=== PATIENT | female | born 1990 | race Caucasian/White ===

== ENCOUNTER 2019-08-08 23:40 | Inpatient (IN) | payer MEDICAID ==
[~2019-08-08] VITALS: Ht 160 cm; Wt 127.5 kg
[~2019-08-08 23:40] MED LIST: PREN-385 PO
[2019-08-09] MEDS ORDERED: LACTATED RINGERS 500 ML IV SCH (00:20)
[2019-08-09] MEDS ORDERED: PROMETHAZINE 25 MG/ML VIAL IVP PRN (00:25)
[2019-08-09] MEDS ORDERED: MORPHINE SULFATE 4 MG/ML SYR IVP PRN (00:25)
[2019-08-09] MEDS ORDERED: PREN-380 PO (00:27)
[2019-08-09 00:28] VITALS: BP 102/74
[2019-08-09 00:45] LABS: BASOPHILS # (AUTO) 0.1 K/uL (0.00-0.22); BASOPHILS % (AUTO) 0.5 % (0.0-2.0); EOSINOPHILS # (AUTO) 0.1 K/uL (0-0.4); EOSINOPHILS % (AUTO) 0.8 % (0.0-4.0); HEMATOCRIT 30.7 % (36-48); LYMPHOCYTES # (AUTO) 2.1 K/uL (2.5-16.5); LYMPHOCYTES % (AUTO) 19.3 % (20.5-51.1); MEAN CORPUSCULAR HEMOGLOBIN 27 pg (27-31); MEAN CORPUSCULAR HGB CONC 32 g/dL (33-37); MEAN CORPUSCULAR VOLUME 83.4 fL (80-94); MONOCYTES # (AUTO) 0.7 K/uL (0.8-1.0); MONOCYTES % (AUTO) 6.6 % (1.7-9.3); NEUTROPHILS % (AUTO) 72.8 % (42.2-75.2); PLATELET COUNT (AUTO) 233 K/uL (140-450); RED BLOOD CELL COUNT(AUTO) 3.68 MIL/uL (4.20-5.40); RED CELL DISTRIBUTION WIDTH 13.7 % (11.6-13.7)
[2019-08-09] MEDS ORDERED: AMPICILLIN 2,000 MG in NACL 0.9% MINI-BAG PLUS 100 ML IV SCH (01:00)
[2019-08-09 01:09] LABS: APPEARANCE,URINE SL CLOUDY (CLEAR); BILIRUBIN,URINE NEGATIVE (NEGATIVE); BLOOD, URINE NEGATIVE (NEGATIVE); COLOR,URINE YELLOW (YELLOW); LEUKOCYTE ESTERASE ,URINE NEGATIVE (NEGATIVE); NITRITE, URINE NEGATIVE (NEGATIVE); UGLUCOSE TRACE (NEGATIVE)
[2019-08-09] MEDS: LACTATED RINGERS 1,000 ML IV SCH ×2 (01:23→14:21)
[2019-08-09] MEDS ORDERED: AMPICILLIN 2,000 MG VIAL ONE (01:25)
[2019-08-09] MEDS ORDERED: AMPICILLIN 1,000 MG VIAL ONE ×3 (04:56→14:04)
[2019-08-09] MEDS ORDERED: OXYTOCIN 20 UNITS/LR PREMIX 1,000 ML IV ONE ×3 (04:58→09:13)
[2019-08-09] MEDS ORDERED: OXYTOCIN 20 UNITS in LACTATED RINGERS 1,000 ML IV SCH (05:00)
[2019-08-09] MEDS: AMPICILLIN 1,000 MG in NACL 0.9% MINI-BAG PLUS 50 ML IV SCH ×2 (05:04→14:10)
--- NOTE | 2019-08-09 08:38 | NUR ---
PATIENT HAS BEEN SCREENED AND CATEGORIZED LOW NUTRITION RISK. PATIENT WILL BE SEEN WITHIN 7 DAYS OF ADMISSION. 08/15/[address]
[2019-08-09] MEDS ORDERED: ROPIVACAINE 0.2%/NS PREMIX 200 ML EPI ONE (09:17)
[2019-08-09] MEDS ORDERED: ROPIVACAINE 0.2%/NS PREMIX 200 ML EPI SCH (10:00)
[2019-08-09] MEDS ORDERED: HYDROcodone/APAP 5/325 MG 1 TAB TAB PO PRN (16:50)
[2019-08-09] MEDS ORDERED: TEMAZEPAM 15 MG CAP PO PRN (16:50)
[2019-08-09] MEDS ORDERED: OXYTOCIN 10 UNITS/ML VIAL IM PRN (16:50)
[2019-08-09] MEDS ORDERED: METHYLERGONOVINE 0.2 MG/ML AMP IM PRN (16:50)
[2019-08-09] MEDS ORDERED: BENZOCAINE/MENTHOL 20%-0.5% 60 GM CAN TP PRN (16:50)
[2019-08-09] MEDS ORDERED: oxyCODONE/APAP 5/325 MG 1 TAB TAB PO PRN (16:50)
[2019-08-09] MEDS ORDERED: IBUPROFEN 800 MG TAB PO PRN (16:50)
[2019-08-09] MEDS ORDERED: DOCUSATE SOD/SENNA 50/8.6 MG 1 TAB PO SCH (21:00)
[2019-08-09] MEDS ORDERED: BISACODYL 5 MG TABEC PO SCH (21:00)
[2019-08-10 16:32] LABS: HEMATOCRIT 30.6 % (36-48)
== END 2019-08-10 21:15 | disposition home or self-care (01) | DRG 560 ==
LOC: MLD 23:40 → MFCC 08-09 10:31
PROVIDERS: ADMIT Obstetrics & Gynecology; ATTEND Obstetrics & Gynecology
PROC: 10E0XZZ Delivery of Products of Conception, External Approach (ICD-10-PCS; principal; 2019-08-09)
PROC: 3E0234Z Introduction of Serum, Toxoid and Vaccine into Muscle, Percutaneous Approach (ICD-10-PCS; 2019-08-10)
DX: O69.1XX0 Labor and delivery complicated by cord around neck, with compression, not applicable or unspecified (principal); R71.0 Precipitous drop in hematocrit; O26.893 Other specified pregnancy related conditions, third trimester; O99.824 Streptococcus B carrier state complicating childbirth; Z37.0 Single live birth; Z3A.38 38 weeks gestation of pregnancy; Z67.91 Unspecified blood type, Rh negative
CPT/HCPCS: 36415; 51702; 59409; 81003; 85018; 85025; 86592; 86850; 86886; 86900; 86901; J0290; J2590; J2790; J2795; J7120

== ENCOUNTER 2022-10-28 11:59 | Emergency (ER) | payer MEDICAID, OTHER ==
[~2022-10-28] VITALS: Ht 172.7 cm; Wt 90.7 kg
[~2022-10-28 11:59] MED LIST changes: +PREN-380 PO
[2022-10-28 12:15] VITALS: BP 126/82; PULSE 95; RESP 18; TEMP 98; O2SAT 98
--- NOTE | 2022-10-28 13:05 | NUR ---
CALLED OUT FOR PT TO OBTAIN EKG, NO ANSWER.
--- NOTE | 2022-10-28 13:27 | NUR ---
NO ANSWER IN WAITING AREA
[2022-10-28 13:44] LABS: BARBITURATE, URINE NEGATIVE ng/ml (NEG <=200); BENZODIAZEPINE, URINE NEGATIVE ng/mL (NEG <=200); CANNABINOID, URINE POSITIVE ng/mL (NEG <=50); COCAINE, URINE NEGATIVE ng/mL (NEG <=300); OPIATE, URINE NEGATIVE ng/mL (NEG <=2000); PHENCYCLIDINE SCREEN,URINE NEGATIVE ng/mL (NEG <=25)
--- NOTE | 2022-10-28 14:30 | NUR ---
PATIENT ELOPED FROM FACILITY. DISCHARGE INSTRUCTIONS NOT GIVEN TO PATIENT. MASTER AC NOTIFIED.
== END 2022-10-28 14:30 | disposition left against medical advice (07) ==
LOC: MED 11:59
DX: O21.8 Other vomiting complicating pregnancy (principal); O26.891 Other specified pregnancy related conditions, first trimester; F15.10 Other stimulant abuse, uncomplicated; R42 Dizziness and giddiness; R03.0 Elevated blood-pressure reading, without diagnosis of hypertension; F41.9 Anxiety disorder, unspecified; F32.9 Major depressive disorder, single episode, unspecified; F12.90 Cannabis use, unspecified, uncomplicated; Z79.899 Other long term (current) drug therapy
CPT/HCPCS: 80305; 81002; 81025; 99283